=== PATIENT | male | born 1955 ===

== ENCOUNTER 2021-03-10 17:07 | Emergency (ER) | payer OTHER, SELFPAY ==
[2021-03-10 17:24] VITALS: BP 90/67; PULSE 118; RESP 18; TEMP 36.3; O2SAT 96
--- NOTE | 2021-03-10 18:01 | PC.NURSE ---
PT UP TO INTAKE DESK. STATES HE CALLED HIS MD AND SET UP AN APPOINTMENT. STATES NO LONGER WANTS TO BE SEEN. DISCUSSED RISKS OF LEAVING WITHOUT BEING SEEN. VERBALIZES UNDERSTANDING.
== END 2021-03-10 18:00 | disposition left against medical advice (07) ==
DX: M79.674 Pain in right toe(s) (principal)
CPT/HCPCS: 99199